=== PATIENT | female | born 1960 | race Two or more races ===

== ENCOUNTER 2016-02-25 00:54 | Emergency (ER) | payer OTHER, MEDICAID ==
[~2016-02-25] VITALS: Ht 152.4 cm; Wt 59.0 kg
[~2016-02-25 00:54] MED LIST: BENA1TAB19 PO; GABA-534 PO; GLIP5TAB13 PO; MECL25TA3 PO; METF500T PO; PYRI50TA9 PO
[2016-02-25] MEDS ORDERED: ONDANSETRON 4 MG TAB.RAPDIS SL ONE (02:00)
[2016-02-25] MEDS ORDERED: ONDANSETRON 4 MG TAB.RAPDIS ONE (02:02)
[2016-02-25 02:35] LABS: BASOPHILS % (AUTO) 0.4 % (0.0-2.0); DIFF TOTAL % 100 %; EOSINOPHILS # (AUTO) 0.2 /CMM (0.0-0.7); EOSINOPHILS % (AUTO) 2.2 % (0.0-6.0); HEMATOCRIT 36 % (33-45); HEMOGLOBIN 11.8 g/dL (11.5-14.8); LYMPHOCYTES # (AUTO) 1.4 /CMM (0.8-4.8); LYMPHOCYTES % (AUTO) 19.4 % (20.0-44.0); MEAN CORPUSCULAR HEMOGLOBIN 24 PG (26.0-33.0); MEAN CORPUSCULAR HGB CONC 33 g/dl (31.0-36.0); MEAN CORPUSCULAR VOLUME 72 fL (82-100); MONOCYTES # (AUTO) 0.3 /CMM (0.1-1.30); MONOCYTES % (AUTO) 3.9 % (2.0-12.0); NEUTROPHILS # (AUTO) 5.5 /CMM (1.8-8.9); NEUTROPHILS % (AUTO) 74.1 % (43.0-81.0); PLATELET COUNT (AUTO) 298 /CMM (150-450); RED BLOOD CELL COUNT(AUTO) 4.99 MIL/uL (4.0-5.2); WHITE BLOOD COUNT (AUTO) 7.5 K/uL (4.3-11.0)
[2016-02-25 02:43] LABS: CALCIUM, SERUM 9.9 mg/dL (8.5-10.1); CREATININE 0.9 mg/dL (0.6-1.3); POTASSIUM 3.5 mmol/L (3.5-5.1)
[2016-02-25 03:11] VITALS: BP 145/65
== END 2016-02-25 03:13 | disposition home or self-care (01) ==
LOC: ER 00:59
DX: R11.2 Nausea with vomiting, unspecified (principal); B34.9 Viral infection, unspecified; J06.9 Acute upper respiratory infection, unspecified; I10 Essential (primary) hypertension; J45.909 Unspecified asthma, uncomplicated; E11.65 Type 2 diabetes mellitus with hyperglycemia; Z88.5 Allergy status to narcotic agent; Z88.6 Allergy status to analgesic agent; Z88.8 Allergy status to other drugs, medicaments and biological substances
CPT/HCPCS: 36415; 80048; 82962; 85025; 99284; A4606; Q0162; Z7610

== ENCOUNTER 2016-05-06 21:57 | Emergency (ER) | payer MEDICAID, OTHER ==
[~2016-05-06] VITALS: Ht 154.9 cm; Wt 63.5 kg
[2016-05-06 22:07] VITALS: BP 110/56
== END 2016-05-06 22:47 | disposition left against medical advice (07) ==
LOC: ER 22:01
DX: Z53.21 Procedure and treatment not carried out due to patient leaving prior to being seen by health care provider (principal)
CPT/HCPCS: A4606; Z7610

== ENCOUNTER 2019-09-06 18:45 | Emergency (ER) | payer MEDICAID, OTHER ==
[~2019-09-06] VITALS: Ht 160 cm; Wt 54.4 kg
[~2019-09-06 18:45] MED LIST changes: +PYRI50TA12 PO; -PYRI50TA9 PO
--- NOTE | 2019-09-06 19:07 | NUR ---
PT BIBDAUGHTER C/O GENERALIZED WEAKNESS AND HIGH BLOOD PRESSURE IN THE 200's . NOTED HIGH BP UPON ARRIVAL. DR SHRESTHA IS AWARE. PT AAOX4, RESPIRATIONS EVEN AND UNLABORED ON RA W/ NAD NOTED. PT CONNECTED TO THE ROOFER METAL AND POX
[2019-09-06] MEDS ORDERED: LABETALOL HCL IV 100MG VIAL ONE (19:12)
[2019-09-06 19:25] LABS: BASOPHILS # (AUTO) 0.1 /CMM (0.0-0.2); BASOPHILS % (AUTO) 1.1 % (0.0-2.0); EOSINOPHILS % (AUTO) 2.5 % (0.0-6.0); HEMATOCRIT 38 % (33-45); HEMOGLOBIN 12.2 g/dL (11.5-14.8); LYMPHOCYTES # (AUTO) 1.3 /CMM (0.8-4.8); LYMPHOCYTES % (AUTO) 26.2 % (20.0-44.0); MEAN CORPUSCULAR HGB CONC 32 g/dl (31.0-36.0); MEAN CORPUSCULAR VOLUME 73 fL (82-100); MONOCYTES # (AUTO) 0.2 /CMM (0.1-1.30); NEUTROPHILS # (AUTO) 3.3 /CMM (1.8-8.9); NEUTROPHILS % (AUTO) 65.2 % (43.0-81.0); PLATELET COUNT (AUTO) 299 /CMM (150-450)
[2019-09-06] MEDS ORDERED: LABETALOL HCL IV 100MG VIAL IV ONE (19:30)
[2019-09-06 19:42] LABS: CALCIUM, SERUM 9.2 mg/dL (8.5-10.1); CARBON DIOXIDE 29 mmol/L (21-32); CHLORIDE 96 mmol/L (98-107); POTASSIUM 3.8 mmol/L (3.5-5.1); SODIUM SERUM 133 mmol/L (136-145); UREA NITROGEN, BLOOD 15 mg/dL (7-18)
[2019-09-06 19:43] LABS: GLUCOSE 598 mg/dL (74-106)
[2019-09-06] MEDS ORDERED: INSULIN ASPART/LISPRO 100 UNIT/ML CARTRIDGE SQ STA (19:57)
[2019-09-06] MEDS ORDERED: IV NS 0.9% 1,000 ML IV ONE (20:00)
[2019-09-06] MEDS ORDERED: INSULIN REGULAR, HUMAN 100 UNIT/ML 10 ML VIAL ONE (20:03)
[2019-09-06] MEDS ORDERED: INSULIN REGULAR, HUMAN 100 UNIT/ML 10 ML VIAL SQ ONE (20:30)
--- NOTE | 2019-09-06 21:30 | NUR ---
Patient discharged to home in stable condition. Written and verbal after care instructions given. Patient verbalizes understanding of instruction.IV removed. Catheter intact and site benign. Pressure and 4x4 applied to site. No bleeding noted.
--- NOTE | 2019-09-06 23:11 | NUR ---
Note josh in ED - 09/06/19 at 2311 by GLORIA Patient discharged to home in stable condition. Written and verbal after care instructions given. Patient verbalizes understanding of instruction.IV removed. Catheter intact and site benign. Pressure and 4x4 applied to site. No bleeding noted.
[2019-09-06 23:12] VITALS: BP 170/84
== END 2019-09-06 23:12 | disposition home or self-care (01) ==
LOC: ER 18:47
DX: I10 Essential (primary) hypertension (principal); E11.65 Type 2 diabetes mellitus with hyperglycemia; J32.9 Chronic sinusitis, unspecified; Z88.8 Allergy status to other drugs, medicaments and biological substances; Z88.6 Allergy status to analgesic agent; Z79.899 Other long term (current) drug therapy; Z79.84 Long term (current) use of oral hypoglycemic drugs
CPT/HCPCS: 36415; 70450; 71045; 80048; 84484; 85025; 85730; 93005; 96361; 96372; 96374; 99285; J1815; J3490; J7030

== ENCOUNTER 2019-12-17 23:15 | Emergency (ER) | payer MEDICAID ==
[~2019-12-17] VITALS: Ht 154.9 cm; Wt 81.2 kg
[2019-12-17 23:38] VITALS: BP 170/98
== END 2019-12-18 00:48 | disposition home or self-care (01) ==
LOC: ER 23:17
DX: K59.00 Constipation, unspecified (principal); I10 Essential (primary) hypertension; E11.9 Type 2 diabetes mellitus without complications; Z91.048 Other nonmedicinal substance allergy status; Z88.8 Allergy status to other drugs, medicaments and biological substances; Z88.6 Allergy status to analgesic agent; Z79.84 Long term (current) use of oral hypoglycemic drugs; Z79.899 Other long term (current) drug therapy
CPT/HCPCS: 74018